=== PATIENT | female | born 1990 | race Two or more races ===

== ENCOUNTER 2024-10-19 11:58 | Emergency (ER) | payer OTHER ==
[2024-10-19 12:08] VITALS: BP 124/73; PULSE 97; RESP 18; TEMP 98.3; BMI 25.9
[2024-10-19] MEDS ORDERED: ACETAMINOPHEN 500 MG TABLET (FP) ONE (12:32)
[2024-10-19] MEDS ORDERED: AMOX TR/POT CLAV 875MG/125MG TABLETS (FP) ONE (12:32)
[2024-10-19] MEDS ORDERED: LIDOCAINE VISCOUS 2% ORAL/TOP 15 ML UNIT-DOSE CUP ONE (12:35)
[2024-10-19] MEDS: LIDOCAINE VISCOUS 2% ORAL/TOP 15 ML UNIT-DOSE CUP MM ONE (12:37)
[2024-10-19] MEDS: AMOX TR/POT CLAV 875MG/125MG TABLETS (FP) PO ONE (12:38)
[2024-10-19] MEDS: ACETAMINOPHEN 500 MG TABLET (FP) PO ONE (12:38)
== END 2024-10-19 12:56 | disposition home or self-care (01) ==
LOC: JER 11:58 → JERFT 11:58
DX: R22.0 Localized swelling, mass and lump, head (principal); K04.7 Periapical abscess without sinus; K08.89 Other specified disorders of teeth and supporting structures; R68.83 Chills (without fever)
CPT/HCPCS: 99283-25